=== PATIENT | female | born 1995 | race Caucasian/White ===

== ENCOUNTER → 2022-09-02 | Outpatient (CLI) | payer OTHER ==
[2022-09-02 11:57] LABS: Source, Urine Clean Catch
[2022-09-02 15:55] LABS: White Blood Cells, Urine TNTC /hpf (0-5)
[2022-09-02 15:56] LABS: Bacteria Many /hpf; Squamous Epithelial Cells Mod /hpf (Few)
== END | disposition home or self-care (01) ==
LOC: LAB SHORT 11:55
PROVIDERS: Family Medicine
DX: Z34.81 Encounter for supervision of other normal pregnancy, first trimester (principal)
CPT/HCPCS: 81015; 87086

== ENCOUNTER → 2022-11-25 | Outpatient (CLI) | payer OTHER ==
[2022-11-25 13:43] LABS: U Amphetamine Screen Not Detected; U Barbituate Screen Not Detected; U Benzodiazapine Screen Not Detected; U Buprenorphine Screen Not Detected; U Cannabinoids Screen Not Detected; U Cocaine Screen Not Detected; U Methadone Screen Not Detected; U Methamphetamine Screen Not Detected; U Opiates Screen Not Detected; U Oxycodone Screen Not Detected; U Phencyclidine Screen Not Detected; U Propoxyphene Screen Not Detected
== END | disposition home or self-care (01) ==
LOC: LAB 11:43 → LAB SHORT 11:43
PROVIDERS: Advanced Practice Midwife
DX: Z34.83 Encounter for supervision of other normal pregnancy, third trimester (principal)

== ENCOUNTER → 2023-03-24 | Outpatient (CLI) | payer OTHER ==
[~2023-03-24] MED LIST: SERT100 PO
== END | disposition home or self-care (01) ==
LOC: LAB 16:07 → LAB SHORT 16:07
DX: O09.893 Supervision of other high risk pregnancies, third trimester (principal); Z3A.00 Weeks of gestation of pregnancy not specified
CPT/HCPCS: 87081; 87150

== ENCOUNTER 2023-03-29 00:57 | Inpatient (IN) | payer OTHER ==
[~2023-03-29] VITALS: Ht 154.9 cm; Wt 76.0 kg
[2023-03-29] VITALS (15 sets, daily range): BP systolic 83–125; BP diastolic 50–78
[2023-03-29] MEDS ORDERED: SERT100 PO (01:19)
[2023-03-29 01:29] LABS: BASOPHILS ABSOLUTE AUTO 0.02 K/mm3 (0.00-0.23); BASOPHILS PERCENT AUTO 0 % (0-2); EOSINOPHILS ABSOLUTE AUTO 0.11 K/mm3 (0.00-0.68); EOSINOPHILS PERCENT AUTO 1 % (0-6); Hematocrit 33.5 % (33.0-51.0); Hemoglobin 11.7 g/dL (11.5-16.0); IMMATURE GRAN ABSOLUTE AUTO 0.02 K/mm3 (0.00-0.10); IMMATURE GRAN PERCENT AUTO 0 % (0-1); LYMPHOCYTES ABSOLUTE AUTO 2.25 K/mm3 (0.84-5.20); LYMPHOCYTES PERCENT AUTO 26 % (21-46); MONOCYTES ABSOLUTE AUTO 0.79 K/mm3 (0.16-1.47); MONOCYTES PERCENT AUTO 9 % (4-13); Mean Corpuscular HGB Conc 34.9 g/dL (31.5-36.5); Mean Corpuscular Volume 89 fL (80-100); Mean Platelet Volume 9.8 fL (9.1-12.4); NEUTROPHILS ABSOLUTE AUTO 5.57 K/mm3 (1.96-9.15); NEUTROPHILS PERCENT AUTO 64 % (41-73); Platelet Count 224 K/mm3 (150-400); RDW Coefficient Variation 12.3 % (11.7-14.2); RDW Standard Deviation 39.6 fL (35.1-46.3); Red Blood Cell Count 3.78 M/mm3 (3.80-5.20); White Blood Cell Count 8.76 K/mm3 (4.00-11.30)
[2023-03-29 03:22] LABS: PCO2 Cord - Arterial 71.7 mmHg (40-50); pH Cord - Arterial 7.16 (7.28-7.35)
[2023-03-29 03:23] LABS: PO2 Cord - Arterial < 16 mmHg (16-20)
[2023-03-29 03:24] LABS: PCO2 Cord - Venous 66.6 mmHg (40-50); pH Umbilical Cord - Venous 7.19 (7.26-7.35)
[2023-03-29 03:25] LABS: PO2 Cord - Venous < 16 mmHg (28-32)
[2023-03-29 05:56] LABS: BASOPHILS ABSOLUTE AUTO 0.02 K/mm3 (0.00-0.23); BASOPHILS PERCENT AUTO 0 % (0-2); EOSINOPHILS ABSOLUTE AUTO 0.03 K/mm3 (0.00-0.68); EOSINOPHILS PERCENT AUTO 0 % (0-6); Hematocrit 28.6 % (33.0-51.0); Hemoglobin 9.8 g/dL (11.5-16.0); IMMATURE GRAN ABSOLUTE AUTO 0.06 K/mm3 (0.00-0.10); IMMATURE GRAN PERCENT AUTO 1 % (0-1); LYMPHOCYTES ABSOLUTE AUTO 0.99 K/mm3 (0.84-5.20); LYMPHOCYTES PERCENT AUTO 8 % (21-46); MONOCYTES ABSOLUTE AUTO 0.58 K/mm3 (0.16-1.47); MONOCYTES PERCENT AUTO 5 % (4-13); Mean Corpuscular HGB Conc 34.3 g/dL (31.5-36.5); Mean Corpuscular Volume 91 fL (80-100); Mean Platelet Volume 10.2 fL (9.1-12.4); NEUTROPHILS PERCENT AUTO 86 % (41-73); Platelet Count 181 K/mm3 (150-400); RDW Coefficient Variation 12.2 % (11.7-14.2); RDW Standard Deviation 40.2 fL (35.1-46.3); Red Blood Cell Count 3.16 M/mm3 (3.80-5.20); White Blood Cell Count 12.08 K/mm3 (4.00-11.30)
--- NOTE | 2023-03-29 13:40 | NUR ---
WALKED PATIENT IN ROOM TOLERATED WELL LINEN CHANGED, D/C MELENDREZ AFTER RETURNED TO BED, PATIENT WILL CALL WHEN SHE NEEDS TO VOID AND WILL SHOWER AT THAT TIME
--- NOTE | 2023-03-29 15:23 | NUR ---
up voided walking well witout assistance
--- NOTE | 2023-03-29 16:45 | NUR ---
report to coby sarabia
[2023-03-30 06:19] VITALS: BP 115/62
[2023-03-30 07:34] VITALS: BP 112/57
[2023-03-30 11:18] VITALS: BP 91/53
[2023-03-30 14:58] VITALS: BP 116/59
[2023-03-30 19:19] VITALS: BP 111/54
[2023-03-31 00:40] VITALS: BP 97/53
[2023-03-31 03:51] VITALS: BP 100/58
[2023-03-31 07:45] VITALS: BP 105/69
[2023-03-31] MEDS ORDERED: ONE-A-DAY PREN1 EAC1 PO (09:47)
[2023-03-31] MEDS ORDERED: IBUP800 PO (09:47)
--- NOTE | 2023-03-31 09:54 | NUR ---
03/31/23 0954 Janie Carbajal VERIFICATIONS: EDIT CHART.
== END 2023-03-31 10:40 | disposition home or self-care (01) | DRG 788 ==
LOC: OBS 00:57 → BC 00:58 → OBS 01:12 → BC 01:14
PROVIDERS: Family Medicine; ADMIT Obstetrics & Gynecology
PROC: 4A033R1 Measurement of Arterial Saturation, Peripheral, Percutaneous Approach (ICD-10-PCS; 2023-03-29)
PROC: 3E0234Z Introduction of Serum, Toxoid and Vaccine into Muscle, Percutaneous Approach (ICD-10-PCS; 2023-03-29)
PROC: 10D00Z1 Extraction of Products of Conception, Low, Open Approach (ICD-10-PCS; principal; 2023-03-29 02:00)
DX: O45.93 Premature separation of placenta, unspecified, third trimester (principal); Z3A.38 38 weeks gestation of pregnancy; Z37.0 Single live birth; O34.211 Maternal care for low transverse scar from previous cesarean delivery; O99.344 Other mental disorders complicating childbirth; F41.8 Other specified anxiety disorders; Z88.8 Allergy status to other drugs, medicaments and biological substances; Z79.899 Other long term (current) drug therapy
CPT/HCPCS: 36415; 36416; 59025; 82803; 82947; 85025; 86850; 86900; 86901; 86923; A9270; J0456; J1100; J1790; J1885; J2405; J2765; J7050; J7120